=== PATIENT | male | born 1970 | race Caucasian/White ===

== ENCOUNTER 2016-11-11 16:11 | Emergency (ER) | payer OTHER ==
[~2016-11-11 16:11] MED LIST: HYZAAR; LEVOTHYROXINE88 MCG PO; LOSARTAN-HCTZ1 EAC2 PO; METRONIDAZOLE 045 GM EXT; OMEPRAZOLE40 M1 PO; SYNTHROID; ZANTAC150 MG PO
[2016-11-11 16:29] LABS: URINE SOURCE CLEAN CATCH
[2016-11-11 16:32] LABS: URINE APPEARANCE HAZY; URINE BILIRUBIN NEG (NEG); URINE BLOOD 2+ (NEG); URINE COLOR YELLOW; URINE GLUCOSE NEG (NORM); URINE KETONE NEG (NEG); URINE LEUKOCYTE ESTERASE 2+ (NEG); URINE NITRATE NEG (NEG); URINE PH 6.5 (5-8); URINE PROTEIN TRACE (NEG); URINE SPECIFIC GRAVITY 1.015 (1.003-1.035); URINE UROBILINOGEN 0.2 MG/DL (NORM)
[2016-11-11 16:40] LABS: MICRO INDICATED? YES
[2016-11-11 16:45] LABS: URINE BACTERIA NEG (NEG); URINE MUCUS PRESENT; URINE RBC 50-100 /[HPF] (0-2); URINE SQUAMOUS EPITHELIAL CELL MODERATE /[HPF]; URINE WBC INNUM /[HPF] (0-5)
[2016-11-14 01:07] LABS: CHLAMYDIA TRACH Not Detected (Not Detected); N GONOR Not Detected (Not Detected)
== END 2016-11-11 17:56 | disposition home or self-care (01) ==
LOC: SED 16:11
PROVIDERS: Physician Assistant
DX: N41.9 Inflammatory disease of prostate, unspecified (principal); I10 Essential (primary) hypertension; E03.9 Hypothyroidism, unspecified; Z88.8 Allergy status to other drugs, medicaments and biological substances; Z79.899 Other long term (current) drug therapy
CPT/HCPCS: 81003; 87491; 87591; 96372; 99283; J0696